=== PATIENT | female | born 2000 | race Caucasian/White ===

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

== ENCOUNTER 2019-11-12 14:11 | Emergency (ER) | payer MEDICAID ==
[2019-11-12] MEDS ORDERED: KETOROLAC TROMETHAMINE 60 MG/2 ML SDV IM ONE (14:23)
[2019-11-12] MEDS ORDERED: DEXAMETHASONE SOD PHOS INJ 10 MG/1 ML VIAL IM ONE (14:23)
[2019-11-12] MEDS ORDERED: CYCLOBENZAPRINE HCL 10 MG TABLET PO ONE (14:23)
--- NOTE | 2019-11-12 14:23 | ER Document Report ---
HPI - HPI Time Seen by Provider: 11/12/19 14:19 Pain Level: 5 Notes: Patient is otherwise healthy 19-year-old female presents emergency department chief complaint of low back pain that radiates down into her right hip. Patient reports history of same, states she dislocated her hip during childbirth. She states that she deals with this pain all the time however today it is worse than usual. Denies any fevers, nausea, vomiting or diarrhea. Denies any loss of control of bowel or bladder, denies any urinary retention or saddle anesthesia. - CONSTITUTIONAL Constitutional: DENIES: Fever, Chills - REPRODUCTIVE Reproductive: DENIES: : - MUSCULOSKELETAL Musculoskeletal: REPORTS: Extremity pain Past Medical History - General Information source: Patient - Social History Smoking Status: Never Smoker Frequency of alcohol use: None Drug Abuse: None Family History: Reviewed & Not Pertinent Patient has suicidal ideation: No Patient has homicidal ideation: No Renal/ Medical History: Denies: Hx Peritoneal Dialysis Psychiatric Medical History: Reports: Hx Anxiety, Hx Bipolar Disorder - and personality disorder Past Surgical History: Reports: Hx Adenoidectomy, Hx Tonsillectomy - adnoids - Immunizations Immunizations up to date: Yes Vertical Provider Document - CONSTITUTIONAL Notes: PHYSICAL EXAMINATION: GENERAL: Well-appearing, well-nourished and in no acute distress. HEAD: Atraumatic, normocephalic. EYES: Pupils equal round and reactive to light, extraocular movements intact, conjunctiva are normal. ENT: Nares patent, oropharynx clear without exudates. Moist mucous membranes. NECK: Normal range of motion, supple without lymphadenopathy LUNGS: Breath sounds clear to auscultation bilaterally and equal. No wheezes rales or rhonchi. HEART: Regular rate and rhythm without murmurs ABDOMEN: Soft, nontender, nondistended abdomen. No guarding, no rebound. No masses appreciated. Female : deferred Musculoskeletal: Normal range of motion, no pitting or edema. No cyanosis. NEUROLOGICAL: Cranial nerves grossly intact. Normal speech, normal gait. Normal sensory, motor exams PSYCH: Normal mood, normal affect. SKIN: Warm, Dry, normal turgor, no rashes or lesions noted. - INFECTION CONTROL TRAVEL OUTSIDE OF THE [place] IN LAST 30 DAYS: No Course - Re-evaluation Re-evalutation: Patient appears well, nontoxic, vital signs within normal limits. Patient reports improvement of pain after administration of medications here in the emergency department. She denies any fevers, nausea, vomiting, dysuria or any other urinary symptoms. She declines to offer a urine sample and one is not indicated. She will be discharged home with plans [facility] of her chronic back pain. She is in agreement with this plan. - Vital Signs Vital signs: Temp Pulse Resp BP Pulse Ox 98.0 F 76 16 123/65 97 11/12/19 14:16 11/12/19 14:16 11/12/19 14:16 11/12/19 14:16 11/12/19 14:16 Discharge - Discharge Clinical Impression: Back pain Qualifiers: Back pain location: low back pain Chronicity: chronic Back pain laterality: right Sciatica presence: with sciatica Sciatica laterality: sciatica of right side Qualified Code(s): M54.41 - Lumbago with sciatica, right side Condition: Stable Disposition: HOME, SELF-CARE Additional Instructions: You have been seen in the Emergency Department (ED) today for back pain. Your workup and exam have not shown any acute abnormalities and you are likely suffering from muscle strain or possible problems with your discs, but there is no treatment that will fix your symptoms at this time. Please take the naproxen that has been prescribed as directed. You should also purchase a local lidocaine cream such as "aspercreme with lidocaine" and use per bottle instructions to the affected area. Apply heat to the area as often as you are able. Continue to keep active and avoid prolonged periods of bed rest. Please follow up with your doctor as soon as possible regarding today's ED visit and your back pain. Return to the ED for worsening back pain, fever, weakness or numbness of either leg, or if you develop either (1) an inability to urinate or have bowel movements, or (2) loss of your ability to control your bathroom functions (if you start having "accidents"), or if you develop other new symptoms that concern you.concern you. Prescriptions: Cyclobenzaprine HCl [Flexeril 10 mg Tablet] 10 mg PO TIDP PRN #15 tab PRN Reason: Naproxen 375 mg PO TID #30 tablet.dr Forms: Return to Work
[2019-11-12 15:20] VITALS: BP 123/63
== END 2019-11-12 15:00 | disposition home or self-care (01) ==
LOC: ER 14:11
DX: M54.41 Lumbago with sciatica, right side (principal); Z87.828 Personal history of other (healed) physical injury and trauma
CPT/HCPCS: 99283; 96372; J3490; J1885; J1100

== ENCOUNTER 2019-11-22 21:48 | Emergency (ER) | payer SELFPAY ==
--- NOTE | 2019-11-22 22:21 | ER Document Report ---
ED Medical Screen (RME) - General Chief Complaint: Abdominal Pain Stated Complaint: VOMITING,ABDOMINAL PAIN Time Seen by Provider: 11/22/19 22:14 Notes: Patient is a 19-year-old female presents emergency department with a chief complaint of mid upper abdominal pain, nausea, vomiting, and diarrhea. Patient's has had her symptoms on and off for the past 2 weeks, but over the last 2 days it has gotten progressively worse. Denies hematemesis. Patient admits to marijuana use, but states that she has cut down. Exam: Tender mid and right upper abdomen. Exam limited due to patient in sitting position. I have greeted and performed a rapid initial assessment of this patient. A comprehensive ED assessment and evaluation of the patient, analysis of test results and completion of medical decision making process will be conducted by an additional ED providers. TRAVEL OUTSIDE OF THE [place] IN LAST 30 DAYS: No - Related Data Allergies/Adverse Reactions: azithromycin Allergy (Verified 05/22/18 22:53) doxycycline Allergy (Verified 05/22/18 22:53) Penicillins Allergy (Verified 11/12/19 14:17) tomato Adverse Reaction (Verified 05/22/18 22:53) Home Medications: melatonin Past Medical History - Social History Frequency of alcohol use: None Drug Abuse: Marijuana Renal/ Medical History: Denies: Hx Peritoneal Dialysis Psychiatric Medical History: Reports: Hx Anxiety, Hx Bipolar Disorder - and pe rsonality disorder Past Surgical History: Reports: Hx Adenoidectomy, Hx Tonsillectomy - adnoids - Immunizations Immunizations up to date: Yes Physical Exam - Vital signs Vitals: Temp Pulse Resp BP Pulse Ox 98.2 F 73 24 H 147/93 H 98 11/22/19 22:01 11/22/19 22:01 11/22/19 22:01 11/22/19 22:01 11/22/19 22:01 Course - Vital Signs Vital signs: Temp Pulse Resp BP Pulse Ox 98.2 F 73 24 H 147/93 H 98 11/22/19 22:01 11/22/19 22:01 11/22/19 22:01 11/22/19 22:01 11/22/19 22:01
[2019-11-22 23:09] LABS: ABSOLUTE EOSINOPHILS # (AUTO) 0.2 10^3/uL (0.0-0.6); ABSOLUTE LYMPHOCYTES (AUTO) 2.5 10^3/uL (0.5-4.7); ABSOLUTE MONOCYTES (AUTO) 0.5 10^3/uL (0.1-1.4); ABSOLUTE NEUT (AUTO) 5.2 10^3/uL (1.7-8.2); BASOPHILS % (AUTO) 0.6 % (0-2); EOSINOPHILS % (AUTO) 2.6 % (0-6); HEMATOCRIT 43.1 % (36.0-47.0); HEMOGLOBIN 14.4 g/dL (12.0-15.5); LYMPHOCYTES % (AUTO) 29.4 % (13-45); MEAN CORPUSCULAR HEMOGLOBIN 28.4 pg (27.0-33.4); MEAN CORPUSCULAR HGB CONC 33.3 g/dL (32.0-36.0); MEAN CORPUSCULAR VOLUME 85 fl (80-97); PLATELET COUNT 314 10^3/uL (150-450); RED BLOOD COUNT 5.07 10^6/uL (3.72-5.28); RED CELL DISTRIBUTION WIDTH 13.7 % (11.5-14.0); SEGMENTED NEUTROPHILS % (AUTO) 61.4 % (42-78); TOTAL CELLS COUNTED % (AUTO) 100 %; WHITE BLOOD COUNT 8.5 10^3/uL (4.0-10.5)
[2019-11-22] MEDS ORDERED: NORMAL SALINE 1000 ML 1,000 ML IV ONE (23:14)
[2019-11-22] MEDS ORDERED: ONDANSETRON HCL INJ/PF 4 MG/2 ML SDV IV ONE (23:14)
[2019-11-22 23:28] LABS: ALBUMIN 4.5 g/dL (3.5-5.0); ALKALINE PHOSPHATASE 57 U/L (38-126); ANION GAP 10 (5-19); ASPARTATE AMINO TRANSFERASE 20 U/L (14-36); BILIRUBIN,DIRECT 0.3 mg/dL (0.0-0.4); BILIRUBIN,TOTAL 0.4 mg/dL (0.2-1.3); BLOOD UREA NITROGEN 10 mg/dL (7-20); CALCIUM 9.8 mg/dL (8.4-10.2); CARBON DIOXIDE 27 mmol/L (22-30); CHLORIDE 103 mmol/L (98-107); GLUCOSE 103 mg/dL (75-110); POTASSIUM 4.1 mmol/L (3.6-5.0); TOTAL PROTEIN 7.9 g/dL (6.3-8.2)
--- NOTE | 2019-11-22 23:40 | RADIOLOGY REPORT (SQ) ---
EXAM DESCRIPTION: [facility]: US ABDOMEN LIMITED CLINICAL HISTORY: 19 years Female; RUQ abd pain; TECHNIQUE: Right upper quadrant ultrasound was performed. COMPARISON: 07/24/2016 FINDINGS: Pancreas: Visualized portions are unremarkable. Liver: 13.8 cm long, somewhat echogenic parenchyma. No ductal distention. Portal venous flow is hepatopedal, normal. Gallbladder: Contracted (postprandial). No shadowing calculi. No Gupta sign. Common bile duct: 3 mm. Right kidney: 10.6 cm long. No hydronephrosis. IMPRESSION: 1. Contracted gallbladder, but no calculi or sonographic evidence for acute cholecystitis.
--- NOTE | 2019-11-23 01:04 | ER Document Report ---
ED General - General Chief Complaint: Abdominal Pain Stated Complaint: VOMITING,ABDOMINAL PAIN Time Seen by Provider: 11/22/19 22:14 Mode of Arrival: Ambulatory Information source: Patient Notes: This 19-year-old female presents emergency department with complaints of mid upper left-sided abdominal pain for the past 2 weeks. She reports she has had nausea vomiting diarrhea for the past 2 weeks also. She reports she is vomited at least 6 days out of 2 weeks last time she vomited was yesterday one time. She also reports she has had at least 4 episodes of diarrhea in the past 2 weeks. Denies fever. Denies pain with void. Denies vaginal discharge. Patient reports she is eating drinking voiding as normal. No other family members ill. She reports both her grandmothers had her gallbladders out. Patient reports her pain increases after she eats. TRAVEL OUTSIDE OF THE [place] IN LAST 30 DAYS: No - HPI Onset: Other Onset/Duration: Persistent Quality of pain: Achy Associated symptoms: Diarrhea, Nausea, Vomiting Exacerbated by: Denies Relieved by: Denies Similar symptoms previously: No Recently seen / treated by doctor: No - Related Data Allergies/Adverse Reactions: azithromycin Allergy (Verified 05/22/18 22:53) doxycycline Allergy (Verified 05/22/18 22:53) Penicillins Allergy (Verified 11/12/19 14:17) tomato Adverse Reaction (Verified 05/22/18 22:53) Home Medications: melatonin Past Medical History - General Information source: Patient Last Menstrual Period: 3 days ago - Social History Smoking Status: Current Every Day Smoker Cigarette use (# per day): Yes Frequency of alcohol use: None Drug Abuse: Marijuana Occupation: None Lives with: Family Family History: Reviewed & Not Pertinent Patient has suicidal ideation: No Patient has homicidal ideation: No Renal/ Medical History: Denies: Hx Peritoneal Dialysis Psychiatric Medical History: Reports: Hx Anxiety, Hx Bipolar Disorder - and personality disorder Past Surgical History: Reports: Hx Adenoidectomy, Hx Tonsillectomy - adnoids - Immunizations Immunizations up to date: Yes Review of Systems - Review of Systems Notes: Review HPI for review of systems., All other systems negative Physical Exam - Vital signs Vitals: Temp Pulse Resp BP Pulse Ox 98.2 F 73 24 H 147/93 H 98 11/22/19 22:01 11/22/19 22:01 11/22/19 22:01 11/22/19 22:01 11/22/19 22:01 - General General appearance: Appears well, Alert In distress: None - HEENT Head: Normocephalic, Atraumatic Eyes: Normal Conjunctiva: Normal Extraocular movements intact: Yes Pharynx: Normal Neck: Normal, Supple. No: Lymphadenopathy - Respiratory Respiratory status: No respiratory distress Chest status: Nontender Breath sounds: Normal Chest palpation: Normal - Cardiovascular Rhythm: Regular Heart sounds: Normal auscultation Murmur: No - Abdominal Inspection: Normal, Obese Distension: No distension Bowel sounds: Normal Tenderness: Tender - Left upper and lower quad Organomegaly: No organomegaly - Back Back: Normal - Extremities General upper extremity: Normal ROM, Normal strength General lower extremity: Normal ROM, Normal strength, Normal weight bearing - Neurological Neuro grossly intact: Yes Cognition: Normal Orientation: AAOx4 Kamar Coma Scale Eye Opening: Spontaneous [place] Coma Scale Verbal: Oriented Kamar Coma Scale Motor: Obeys Commands Kamar Coma Scale Total: 15 Speech: Normal Cerebellar coordination: Normal - Psychological Associated symptoms: Normal affect, Normal mood - Skin Skin Temperature: Warm Skin Moisture: Dry Skin Color: Normal Course - Re-evaluation Re-evalutation: 11/23/19 01:39 19-year-old female presents emergency department with reports of nausea vomiting diarrhea on and off for the past 2 weeks. Denies fever. Reports abdominal pain to the left side. She reports it hurts more after she eats. Patient reports she is eating drinking without any problems. Patient denies history of IBS diverticulitis. Labs unremarkable ultrasound negative for acute cholecystitis. Considering CT but patient reports she has to leave because she has had a ethologist problems. She was instructed all results. Instructed follow-up with primary care provider or return here for worsening symptoms and concerns. She verbalized understanding to all instructions. Abdomen Ultrasound 11/22/19 22:19 IMPRESSION: 1. Contracted gallbladder, but no calculi or sonographic evidence for acute cholecystitis. Laboratory 11/22/19 11/22/19 11/23/19 22:35 22:35 00:50 WBC 8.5 RBC 5.07 Hgb 14.4 Hct 43.1 MCV 85 MCH 28.4 MCHC 33.3 RDW 13.7 Plt Count 314 Lymph % (Auto) 29.4 Josephine % (Auto) 6.0 Eos % (Auto) 2.6 Baso % (Auto) 0.6 Absolute Neuts (auto) 5.2 Absolute Lymphs (auto) 2.5 Absolute Monos (auto) 0.5 Absolute Eos (auto) 0.2 Absolute Basos (auto) 0.0 Seg Neutrophils % 61.4 Sodium 139.5 Potassium 4.1 Chloride 103 Carbon Dioxide 27 Anion Gap 10 BUN 10 Creatinine 0.73 Est GFR ( Amer) > 60 Est GFR (MDRD) Non-Af > 60 Glucose 103 Calcium 9.8 Total Bilirubin 0.4 Direct Bilirubin 0.3 Neonat Total Bilirubin Not Reportable Neonat Direct Bilirubin Not Reportable Neonat Indirect Bili Not Reportable AST 20 ALT 12 Alkaline Phosphatase 57 Total Protein 7.9 Albumin 4.5 Lipase 143.6 Urine Color YELLOW Urine Appearance CLEAR Urine pH 6.0 Ur Specific [place] 1.008 Urine Protein NEGATIVE Urine Glucose (UA) NEGATIVE Urine Ketones NEGATIVE Urine Blood NEGATIVE Urine Nitrite NEGATIVE Urine Bilirubin NEGATIVE Urine Urobilinogen NEGATIVE Ur Leukocyte Esterase NEGATIVE Urine WBC (Auto) 0 Urine RBC (Auto) 0 Squamous Epi Cells Auto <1 Urine Mucus (Auto) RARE Urine Ascorbic Acid NEGATIVE Urine HCG, Qual NEGATIVE - Vital Signs Vital signs: Temp Pulse Resp BP Pulse Ox 98.2 F 73 24 H 147/93 H 98 11/22/19 22:01 11/22/19 22:01 11/22/19 22:01 11/22/19 22:01 11/22/19 22:01 - Laboratory Result Diagrams: 11/22/19 22:35 11/22/19 22:35 Discharge - Discharge Clinical Impression: Nausea vomiting and diarrhea Abdominal pain Qualifiers: Abdominal location: unspecified location Qualified Code(s): R10.9 - Unspecified abdominal pain Condition: Stable Disposition: HOME, SELF-CARE Instructions: Abdominal Pain ([facility]), Diarrhea, Nonspecific ([facility]), Intravenous (IV) Fluids ([facility]), OTC Antidiarrhea Medication ([facility]), Vomiting ([facility]) Additional Instructions: *You have been evaluated for abdominal pain, nausea/vomiting/diarrhea *Your ultrasound was negative for an acute injury. Your labs have been unremarkable Start off with a clear liquid diet advance as tolerated *take Over the counter anti-diarrheal as indicated *Ensure adequate fluid intake as discussed to prevent dehydration *Follow up with a primary care provider within 1 week *Return to ED for worsening condition, changes, needs, concerns Monitor your blood pressure. Your blood pressure was elevated today. This may be because you were anxious, in pain or because you need medication. It is important to follow up with your primary care provider for full evaluation. Forms: Elevated Blood Pressure, Smoking Cessation Education
[2019-11-23 01:06] LABS: APPEARANCE,URINE CLEAR; BILIRUBIN,URINE NEGATIVE (NEGATIVE); COLOR,URINE YELLOW; GLUCOSE, URINE NEGATIVE (NEGATIVE); KETONES,URINE NEGATIVE (NEGATIVE); LEUKOCYTE ESTERASE,URINE NEGATIVE (NEGATIVE); NITRITE,URINE NEGATIVE (NEGATIVE); PROTEIN,URINE NEGATIVE (NEGATIVE); URINE SPECIFIC GRAVITY 1.008; UROBILINOGEN,URINE NEGATIVE mg/dL (<2.0)
[2019-11-23 01:42] VITALS: BP 113/87
== END 2019-11-23 01:40 | disposition home or self-care (01) ==
LOC: ER 21:48
DX: R11.2 Nausea with vomiting, unspecified (principal); R19.7 Diarrhea, unspecified; K82.0 Obstruction of gallbladder; R10.12 Left upper quadrant pain; R10.812 Left upper quadrant abdominal tenderness; R10.814 Left lower quadrant abdominal tenderness; F12.10 Cannabis abuse, uncomplicated; F17.210 Nicotine dependence, cigarettes, uncomplicated; Z79.899 Other long term (current) drug therapy; Z88.1 Allergy status to other antibiotic agents; Z88.0 Allergy status to penicillin
CPT/HCPCS: 99284; 96361; 96374; 36415; 83690; 85025; 81025; 80053; 81001; 76705; J2405; J7030